=== PATIENT | male | born 1970 | race Caucasian/White ===

== ENCOUNTER 2019-01-20 08:11 | Day surgery (SDC) | payer OTHER, BC ==
[~2019-01-20] VITALS: Ht 182.9 cm; Wt 91.2 kg
[~2019-01-20 08:11] MED LIST: AMLO10 PO; ASPI81CH PO; BACL10 PO; CETI5 PO; Depo-Testos200 MG/ML IM; FISH OIL 1,0001 EAC1 PO; Hair, Skin & N1 EACH PO; IBUP800 PO; LOSHYD PO; LOVA40 PO; OXYC5 PO; Omeprazole20 M1 PO; SERT100 PO; SODCHL1 PO; ZOLP10 PO
--- NOTE | 2019-01-20 09:34 | NUR ---
Ambulatory in Day Surgery History, Chart, Medications and Allergies reviewed before start of procedure.Patient confirms NPO status and agrees with scheduled surgery. Patient reports completing Chlorhexadine shower X2 prior to admission to hospital.Surgical site prepped with 2% Chlorhexidine cloth wipe.
--- NOTE | 2019-01-20 11:40 | NUR ---
01/20/19 1140 Pratima Thorne 2GM IVPB GIVEN AT [address] MICHAUD.
--- NOTE | 2019-01-20 13:12 | NUR ---
REPORT TO KARIS MORRIS
== END 2019-01-20 22:46 | disposition home or self-care (01) ==
LOC: ORSCMMR 08:11 → ORD 10:15 → ORSCMMR 22:46
PROVIDERS: Surgery
PROC: 0WUF0JZ Supplement Abdominal Wall with Synthetic Substitute, Open Approach (ICD-10-PCS; principal; 2019-01-20 10:15)
DX: K43.0 Incisional hernia with obstruction, without gangrene (principal); I10 Essential (primary) hypertension; Z79.899 Other long term (current) drug therapy
CPT/HCPCS: C1781; J0330; J0690; J2250; J2405; J3010; J7120

== ENCOUNTER 2021-03-15 11:42 | Day surgery (SDC) | payer OTHER, BC ==
[~2021-03-15] VITALS: Ht 182.9 cm; Wt 97.5 kg
== END 2021-03-15 15:40 | disposition home or self-care (01) ==
LOC: ORSCSDS 11:42
PROC: 0WUF0JZ Supplement Abdominal Wall with Synthetic Substitute, Open Approach (ICD-10-PCS; principal; 2021-03-15)
DX: K43.0 Incisional hernia with obstruction, without gangrene (principal); I10 Essential (primary) hypertension; E78.5 Hyperlipidemia, unspecified; Z79.899 Other long term (current) drug therapy; Z85.038 Personal history of other malignant neoplasm of large intestine; Z85.05 Personal history of malignant neoplasm of liver
CPT/HCPCS: A9270; C1781; J0690; J1885; J2704; J3010

== ENCOUNTER 2021-07-13 10:16 | Day surgery (SDC) | payer OTHER ==
[~2021-07-13] VITALS: Ht 182.9 cm; Wt 99.8 kg
== END 2021-07-13 12:00 | disposition home or self-care (01) ==
LOC: ORSCSDS 10:16
PROVIDERS: Surgery
PROC: 0DBM8ZX Excision of Descending Colon, Via Natural or Artificial Opening Endoscopic, Diagnostic (ICD-10-PCS; principal; 2021-07-13 11:30)
DX: R93.3 Abnormal findings on diagnostic imaging of other parts of digestive tract (principal); Z85.038 Personal history of other malignant neoplasm of large intestine; D12.4 Benign neoplasm of descending colon; I10 Essential (primary) hypertension; Z79.82 Long term (current) use of aspirin; Z79.899 Other long term (current) drug therapy
CPT/HCPCS: 88305; J0461; J2405; J2704; J7120

== ENCOUNTER 2025-10-26 08:14 | Day surgery (SDC) | payer OTHER ==
[~2025-10-26] VITALS: Ht 185.4 cm; Wt 90.9 kg
[2025-10-26] VITALS (18 sets, daily range): BP systolic 104–142; BP diastolic 73–109
--- NOTE | 2025-10-26 09:06 | NUR ---
Patient States Post-Procedure ride home has been arranged. Patient confirms NPO status and agrees with scheduled surgery. Patient states colon prep results clear.Lungs clear T/O to Auscultation, RIGHT SIDE DIM.
--- NOTE | 2025-10-26 10:05 | NUR ---
10/26/25 1005 Alessandra Boone CONFIRMED AND REVIEWED H&P, MEDCICATIONS, ALLERGIES, MEDICAL HISTORY, RESPIRATORY HISTORY, VITAL SIGNS, 3-LEAD EKG, CONSENTS, AND PHYSICIAN ORDERS. PATIENT CONFIRMS NPO STATUS AND AGREES WITH SCHEDULED PROCEDURE. MONITOR INTACT WITH CONTINUOUS PULSE OXIMETRY, CAPNOGRAPHY, 3-LEAD EKG, INTERMITTENT BP. SUPPLEMENTAL O2 TO BE TITRATED THROUGHOUT PROCEDURE TO MAINTAIN O2 SATURATION ABOVE 90%. PATIENT DETERMINED TO BE ASA APPROPRIATE FOR PROPOFOL SEDATION PRIOR TO START OF PROCEDURE BY DR. THOMPSON.
--- NOTE | 2025-10-26 10:39 | NUR ---
Discharge instructions reviewed with patient. Patient verbalizes understanding. Copy given to patient to take home. Discharged via wheelchair to private car for ride home.
== END 2025-10-26 10:39 | disposition home or self-care (01) ==
LOC: ORSCMMR 08:14 → ORD 09:45 → ORSCMMR 09:45
PROVIDERS: Surgery
PROC: 0DJD8ZZ Inspection of Lower Intestinal Tract, Via Natural or Artificial Opening Endoscopic (ICD-10-PCS; principal; 2025-10-26 09:45)
DX: R19.4 Change in bowel habit (principal); D17.79 Benign lipomatous neoplasm of other sites; K64.8 Other hemorrhoids; Z85.038 Personal history of other malignant neoplasm of large intestine; Z86.0101 Personal history of adenomatous and serrated colon polyps; I10 Essential (primary) hypertension; E78.5 Hyperlipidemia, unspecified; F41.9 Anxiety disorder, unspecified; Z85.05 Personal history of malignant neoplasm of liver; Z79.82 Long term (current) use of aspirin; Z79.899 Other long term (current) drug therapy
CPT/HCPCS: J2704; J7120